=== PATIENT | female | born 1930 | race Caucasian/White ===

== ENCOUNTER 2020-03-28 09:25 | Inpatient (IN) | payer MEDICARE, OTHER ==
[2020-03-28 11:22] LABS: Lactic Acid 1.7 mmol/L (0.5-2.2)
[2020-03-28 11:28] LABS: ALT (SGPT) 24 U/L (8-55); AST (SGOT) 13 U/L (5-34); Albumin 3.9 g/dL (3.4-4.8); Alkaline Phosphatase 69 U/L (40-110); Anion Gap 19 mmol/L (10-20); BUN (Urea Nitrogen) 35 mg/dL (9.8-20.1); Bilirubin, Total 0.7 mg/dL (0.2-1.2); Calc. Creatinine Clearance 24 mL/min (70-130); Calcium 9.2 mg/dL (7.8-10.44); Carbon Dioxide 20 mmol/L (23-31); Chloride 103 mmol/L (98-107); Estimated GFR-MDRD 34; Globulin 4.1 g/dL (2.4-3.5); Glucose 93 mg/dL (83-110); Potassium 4.3 mmol/L (3.5-5.1); Sodium 138 mmol/L (136-145)
[2020-03-28 11:33] LABS: Hemoglobin 15.6 g/dL (12.0-16.0); Lymphocytes 17 % (21-51); MDiff Complete? YES; Mean Corpuscular Hemoglobin 29.3 pg (27.0-31.0); Mean Corpuscular Volume 91.7 fL (78.0-98.0); Mean Platelet Volume 8.3 fL (7.4-10.4); Monocytes 11 % (0-10); Neutrophil 72 % (42-75); Platelet Count 427 thou/uL (130-400); Platelet Morphology Comment Appears Increased; RBC Distribution Width 11.6 % (11.5-14.5); Red Blood Cell (RBC) Count 5.33 mill/uL (4.20-5.40); White Blood Cell (WBC) Count 9.6 thou/uL (4.8-10.8)
--- NOTE | 2020-03-28 12:09 | RAD ---
AP CHEST: Date: 03/28/2020 HISTORY: Shortness of breath. Positive COVID. COMPARISON: 02/21/2013. FINDINGS: There are chronic lung changes with interstitial prominence bilaterally. There are hazy infiltrates s een in the periphery of both lungs consistent with COVID pneumonia. No significant vascular congestio n. Heart size normal. IMPRESSION: Hazy bilateral peripheral infiltrates consistent with COVID pneumonia. This is superimposed on what a ppears to be chronic lung change. POS: AGW
[2020-03-28] MEDS ORDERED: FLU VACC QS2020-21(65YR UP)/PF 240 MCG/0.7 ML SYRINGE IM ONE (12:15)
[2020-03-28] MEDS ORDERED: Sodium Chloride 0.9% 1,000 ML IV SCH (12:30)
[2020-03-28] MEDS ORDERED: Ipratropium/Albuterol Sulfate 4 GM AER IH PRN (13:20)
[2020-03-28 15:11] LABS: Bilirubin Negative (Negative); Blood, Urine Trace (Negative); Glucose, Urine (Dipstick) Negative (Negative); Ketone, Urine Negative (Negative); Leukocyte Moderate (Negative); Nitrite Negative (Negative); Protein, Urine (Dipstick) 30 mg/dL (Neg-Trace); Urobilinogen 0.2 mg/dL (Less than 2); pH, Urine 5.5 (5.0-9.0)
[2020-03-28 15:29] LABS: Bacteria/HPF 4+ HPF (None Seen); Clarity Slightly Cloudy (Clear); WBC/HPF Greater Than 50 HPF (0-3)
[2020-03-28] MEDS ORDERED: Non-Formulary Item 1 EACH (Multivitamin [Multi-Vitamin Daily] 1 TABLET Tablet) PO SCH (21:00)
[2020-03-28] MEDS ORDERED: DEXAMETHASONE 6 MG PO SCH (21:00)
[2020-03-28] MEDS ORDERED: Multivit, Therapeutic 1 TAB PO SCH (21:00)
[2020-03-28] MEDS: Dextrose 5 %-0.45 % NaCl 1,000 ML IV SCH (21:09)
[2020-03-28] MEDS: Dexamethasone 4 MG TAB PO SCH (21:15)
[2020-03-28] MEDS: Ascorbic Acid 500 mg Chewable Tablet PO SCH (21:15)
[2020-03-28] MEDS: Multivit, Therapeutic 1 TAB PO SCH (21:15)
--- NOTE | 2020-03-29 01:40 | HP ---
ATTENDING/PCP: Myrtle Huggins MD REASON FOR ADMISSION: General weakness, dehydration. HISTORY OF THE PRESENT ILLNESS/HOSPITAL COURSE: Ms. Em is an 89-year-old female, a long-term resident of [facility], who was recently diagnosed with COVID-19 infection per routine screening test in the [facility] facility about a week ago. The patient was then asymptomatic and was isolated in the snf's COVID unit. On 03/19/2020, the snf staff reports that patient started having URI symptoms. The patient started having cough, nonproductive, with diminished appetite. She was then febrile free. She was started on Z-Sean for empiric antibiotic treatment and supplements including vitamin D, zinc, vitamin C. High-dose aspirin for DVT prophylaxis was likewise initiated. After 10 days of being isolated in the snf's COVID unit, the patient was subsequently transferred to her regular room wherein she was noticed to be generally weak. She continued to have diminished appetite. Over the last 48 hours, staff reports that patient only drinks little fluids, water, or juice enough to swallow her medications but would not eat. She was also reported to have mild O2 desaturation requiring O2 supplements per nasal cannula at 2 L, but over the past 24 hours, the patient has been tolerating room air without significant respiratory distress. Her CXR is consistent with COVID-19 pneumonia Due to persistent general weakness, the patient was sent and directly admitted to [facility] for clinical dehydration and supportive medical management. When admitted to the medical floor today,the patient's initial vital signs showed blood pressure 130/62, temperature 97.2,pulse 50, respirations 16; O2 sats 91% on room air. The patient was placed on 2 L oxygen per nasal cannula and oxygen saturation improved to 96%. When evaluated, the patient remains generally weak and is wanting to lie down and doesnot do anything. She was less interactive. She barely eats her lunch tray but then ate few spoonful some after so much prodding from the nursing staff. PAST MEDICAL HISTORY: 1. Alzheimer disease, late onset. 2. Essential hypertension. 3. Hypothyroidism. 4. Dyslipidemia. 5. History of delusional disorder. 6. Dementia with behavioral disturbances. 7. Insomnia. 8. History of mood swings. 9. History of elopement. 10. Anxiety, agitation. 11. Macular degeneration. PAST SURGICAL HISTORY: Unknown. FAMILY HISTORY: Noncontributory. SOCIAL HISTORY: The patient is . Denies tobacco, ETOH, or illicit drug use. She is a long-term resident of [facility]. Her son, Ananda Sanchez, is this patient's responsible constitution party, who is actively involved in patient's care. ALLERGIES: TO PENICILLIN. REVIEW OF SYSTEMS: Limited secondary to current cognitive status/confusion. Per staff, reports no persistent fever. Denies vomiting, diarrhea, rectal bleeding, abdominal pain, chest pain, shortness of breath, dysuria, seizure-like activity, tics, tremors, or headaches. PHYSICAL EXAMINATION: CURRENT VITAL SIGNS: Blood pressure 116/51, temp 97, pulse 54, respirations 18, O2 saturations 96% at 2 L per nasal cannula. Weight 126 pounds and 9 ounces. Height 5 feet 3 inches. GENERAL: The patient is awake, alert, knows her name only, generally weak looking, frail looking, elderly, comfortably resting in bed, not in acute distress. HEENT: Normocephalic, atraumatic. PERRL. Intact EOM. Nonicteric sclerae. Oral mucosa is dry. Lips dry. NECK: Supple. No LAD. CHEST: Normal excursion. Nonlabored breathing. LUNGS: Clear breath sounds with good air entry except for diminished bases. No rales. No crackles. No wheezing. No rhonchi. CARDIAC: Mildly bradycardic. Normal S1 and S2. ABDOMEN: Flat, soft. Normoactive bowel sounds. Nondistended. Nontender. No rebound, no guarding. Negative CVA tenderness bilaterally. EXTREMITIES: No edema. No cyanosis. Atrophied limbs. SKIN: Intact. Warm with poor skin turgor. PSYCH: Calm. Answer simple questions with very soft voice, but takes a while, and some queries are not answered at all. Nonfocal. Gait unsteady. LABORATORY STUDIES: WBC 9.6, hemoglobin 15.6, hematocrit 48.8, platelets 427. Sodium 138, potassium 4.3, BUN 35, creatinine 1.45, estimated GFR 34. Lactic acid 1.7, glucose 93. Liver function tests within normal limits. Urine leukocyte moderately high, urine rbc 4-6, wbc greater than 50, urine bacteria 4+. Pending cultures for urine and blood x2. Chest x-ray showed hazy bilateral peripheral infiltrates consistent with COVID pneumonia. This is superimposed on what appears to be chronic lung changes. Heart size is normal. No significant vascular congestion. ASSESSMENT AND PLAN: 1. Clinical dehydration. 2. COVID pneumonia. 3. General weakness, severe deconditioning. 4. UTI,complicated 5. Hypothyroidism. 6. Alzheimer disease, late onset. 7. History of hypertension. This is an elderly with chronic medical conditions, a long-term resident of a [facility] facility with confirmed COVID-19 virus infection diagnosed on 03/12/2020 with mild symptoms, now presented with acute postviral syndrome complicated with clinical dehydration secondary to poor oral intake and UTI in elderly. The patient is admitted for supportive medical management. We will continue IV hydration until patient's oral consumption stabilizes. We will also start IV Levaquin for empiric treatment of UTI that probably complicates current postviral syndrome. The patient was already treated with oral antibiotic with Zithromax in the sn[facility]. We will continue all current medications including supplements of vitamin D, vitamin C, zinc. We will hold her antihypertensive, dementia, and insomnia medicine. Dietary consult. Continue I's and O's monitoring. GI prophylaxis with PPI. DVT prophylaxis with aspirin 325 mg p.o. We will continue supportive medical management at this time Consider physical and occupational therapy evaluation if the patient's overall strength improves. Further recommendations depending on the hospital course. CODE STATUS: The patient is DNR and this was confirmed with son, Ananda Sanchez, on the phone Son is aware that with COVID pneumonia in an elderly with multiple chronic conditions has a poor prognosis. Job ID: [id number] [facility]
[2020-03-29] MEDS: Levothyroxine Sodium 25 MCG TAB PO SCH (05:43)
[2020-03-29] MEDS: Dextrose 5 %-0.45 % NaCl 1,000 ML IV SCH ×2 (07:38→16:22)
[2020-03-29] MEDS: Multivit, Therapeutic 1 TAB PO SCH ×2 (08:13→20:31)
[2020-03-29] MEDS: Ascorbic Acid 500 mg Chewable Tablet PO SCH ×2 (08:13→20:31)
[2020-03-29] MEDS: Potassium Chloride 10 MEQ TAB PO SCH (08:14)
[2020-03-29] MEDS: Aspirin 325 MG TAB PO SCH (08:14)
[2020-03-29] MEDS: Cholecalciferol 1,000 UNITS (25 MCG) TAB PO SCH (08:14)
[2020-03-29] MEDS: Zinc Sulfate 220 MG CAP PO SCH (08:14)
[2020-03-29] MEDS ORDERED: Cholecalciferol 1,000 UNITS (25 MCG) TAB PO SCH (09:00)
[2020-03-29] MEDS ORDERED: Zinc Sulfate 220 MG CAP PO SCH (09:00)
[2020-03-29] MEDS ORDERED: CHOLECALCIFEROL 250 MCG PO SCH (09:00)
[2020-03-29] MEDS: Sodium Chloride 0.45% 1,000 ML IV SCH (16:24)
[2020-03-29] MEDS: Nystatin 500,000 UNITS/5 ML UDCUP SSW SCH ×2 (16:25→20:43)
[2020-03-29] MEDS: Dexamethasone 4 MG TAB PO SCH (20:31)
[2020-03-30] MEDS: Dextrose 5 %-0.45 % NaCl 1,000 ML IV SCH (05:20)
[2020-03-30] MEDS: Levothyroxine Sodium 25 MCG TAB PO SCH (05:23)
[2020-03-30 05:48] LABS: Anion Gap 16 mmol/L (10-20); BUN (Urea Nitrogen) 21 mg/dL (9.8-20.1); Calc. Creatinine Clearance 34 mL/min (70-130); Calcium 8.4 mg/dL (7.8-10.44); Carbon Dioxide 19 mmol/L (23-31); Chloride 109 mmol/L (98-107); Estimated GFR-MDRD 46; Glucose 167 mg/dL (83-110); Potassium 4.6 mmol/L (3.5-5.1); Sodium 139 mmol/L (136-145)
[2020-03-30] MEDS: Sodium Chloride 0.45% 1,000 ML IV SCH ×2 (06:05→20:48)
[2020-03-30] MEDS: Zinc Sulfate 220 MG CAP PO SCH (08:33)
[2020-03-30] MEDS: Nystatin 500,000 UNITS/5 ML UDCUP SSW SCH ×4 (08:33→20:49)
[2020-03-30] MEDS: Ascorbic Acid 500 mg Chewable Tablet PO SCH ×2 (08:33→20:48)
[2020-03-30] MEDS: Multivit, Therapeutic 1 TAB PO SCH ×2 (08:33→20:49)
[2020-03-30] MEDS: Aspirin 325 MG TAB PO SCH (08:33)
[2020-03-30] MEDS: Cholecalciferol 1,000 UNITS (25 MCG) TAB PO SCH (08:34)
[2020-03-30] MEDS: Potassium Chloride 10 MEQ TAB PO SCH (08:34)
[2020-03-30] MEDS: Dexamethasone 4 MG TAB PO SCH (20:48)
[2020-03-30] MEDS ORDERED: Mirtazapine 15 MG TAB PO SCH (21:00)
[2020-03-31] MEDS: Levothyroxine Sodium 25 MCG TAB PO SCH (06:09)
[2020-03-31] MEDS: Cholecalciferol 1,000 UNITS (25 MCG) TAB PO SCH (09:36)
[2020-03-31] MEDS: Nystatin 500,000 UNITS/5 ML UDCUP SSW SCH ×4 (09:37→20:35)
[2020-03-31] MEDS: Potassium Chloride 10 MEQ TAB PO SCH (09:37)
[2020-03-31] MEDS: Ascorbic Acid 500 mg Chewable Tablet PO SCH ×2 (09:37→20:36)
[2020-03-31] MEDS: Multivit, Therapeutic 1 TAB PO SCH ×2 (09:37→20:36)
[2020-03-31] MEDS: Aspirin 325 MG TAB PO SCH (09:38)
[2020-03-31] MEDS: Zinc Sulfate 220 MG CAP PO SCH (09:38)
[2020-03-31 10:52] VITALS: BMI 23.1
[2020-03-31] MEDS: Sodium Chloride 0.45% 1,000 ML IV SCH (11:01)
[2020-03-31] MEDS ORDERED: Sodium Chloride 0.45% 1,000 ML IV SCH (18:45)
[2020-03-31] MEDS: Dexamethasone 4 MG TAB PO SCH (20:35)
[2020-03-31] MEDS ORDERED: Mirtazapine 15 MG TAB PO SCH (21:00)
[2020-04-01] MEDS: Levothyroxine Sodium 25 MCG TAB PO SCH (05:54)
[2020-04-01 06:15] LABS: Anion Gap 18 mmol/L (10-20); BUN (Urea Nitrogen) 22 mg/dL (9.8-20.1); Calc. Creatinine Clearance 31 mL/min (70-130); Calcium 8.5 mg/dL (7.8-10.44); Carbon Dioxide 19 mmol/L (23-31); Chloride 110 mmol/L (98-107); Estimated GFR-MDRD 43; Glucose 155 mg/dL (83-110); Potassium 4.5 mmol/L (3.5-5.1); Sodium 142 mmol/L (136-145)
[2020-04-01] MEDS: Aspirin 325 MG TAB PO SCH (08:50)
[2020-04-01] MEDS: Nystatin 500,000 UNITS/5 ML UDCUP SSW SCH (08:50)
[2020-04-01] MEDS: Ascorbic Acid 500 mg Chewable Tablet PO SCH (08:50)
[2020-04-01] MEDS: Multivit, Therapeutic 1 TAB PO SCH (08:51)
[2020-04-01] MEDS: Zinc Sulfate 220 MG CAP PO SCH (08:51)
[2020-04-01 08:58] VITALS: BP 104/69; TEMP 96.6
[2020-04-01] MEDS ORDERED: Cholecalciferol (Vitamin D3) 5,000 UNITS CAPSULE PO SCH (09:00)
[2020-04-01] MEDS: Potassium Chloride 10 MEQ TAB PO SCH (09:57)
== END 2020-04-01 11:14 | disposition swing bed (61) | DRG 689 ==
LOC: UNDOADMIN 09:45 → MADMS 09:45
PROVIDERS: ADMIT Family Medicine; ATTEND Family Medicine
DX: N39.0 Urinary tract infection, site not specified (principal); U07.1 COVID-19; J12.89 Other viral pneumonia; F02.81 Dementia in other diseases classified elsewhere, unspecified severity, with behavioral disturbance; G93.3 Postviral and related fatigue syndromes; Z66 Do not resuscitate; E86.0 Dehydration; G30.1 Alzheimer's disease with late onset; I10 Essential (primary) hypertension; E03.9 Hypothyroidism, unspecified; E78.5 Hyperlipidemia, unspecified; G47.00 Insomnia, unspecified; H35.30 Unspecified macular degeneration; R53.1 Weakness; R53.81 Other malaise; Z88.0 Allergy status to penicillin
CPT/HCPCS: 36415; 71045; 80048; 80053; 81001; 83605; 84443; 85025; 87040; 87086; J1956; J7042; J7050; J8540

== ENCOUNTER 2020-03-31 13:07 | Inpatient (IN) | payer MEDICARE, OTHER ==
[2020-04-01] MEDS ORDERED: FLU VACC QS2020-21(65YR UP)/PF 240 MCG/0.7 ML SYRINGE IM ONE (12:45)
[2020-04-01] MEDS: Nystatin 500,000 UNITS/5 ML UDCUP PO SCH ×3 (13:31→20:03)
[2020-04-01] MEDS: Ascorbic Acid 500 mg Chewable Tablet PO SCH (20:05)
[2020-04-01] MEDS: Multivit, Therapeutic 1 TAB PO SCH (20:05)
[2020-04-01] MEDS: Mirtazapine 15 MG TAB PO SCH (20:05)
[2020-04-02] MEDS: Levothyroxine Sodium 25 MCG TAB PO SCH (05:27)
[2020-04-02] MEDS ORDERED: Potassium Chloride 10 MEQ TAB PO SCH (09:00)
[2020-04-02] MEDS: Aspirin 325 MG TAB PO SCH (09:08)
[2020-04-02] MEDS: Ascorbic Acid 500 mg Chewable Tablet PO SCH ×2 (09:08→21:33)
[2020-04-02] MEDS: Cholecalciferol (Vitamin D3) 5,000 UNITS CAPSULE PO SCH (09:08)
[2020-04-02] MEDS: Nystatin 500,000 UNITS/5 ML UDCUP PO SCH ×4 (09:08→21:33)
[2020-04-02] MEDS: Multivit, Therapeutic 1 TAB PO SCH ×2 (09:08→21:32)
[2020-04-02] MEDS: Zinc Sulfate 220 MG CAP PO SCH (09:08)
[2020-04-02] MEDS ORDERED: Acetaminophen 325 MG TAB PO PRN (10:50)
[2020-04-02] MEDS ORDERED: Senokot S 8.6-50 MG TAB PO SCH (11:00)
[2020-04-02] MEDS: Senokot S 8.6-50 MG TAB PO SCH (21:32)
[2020-04-02] MEDS: Mirtazapine 15 MG TAB PO SCH (21:33)
[2020-04-03] MEDS: Levothyroxine Sodium 25 MCG TAB PO SCH (06:14)
[2020-04-03] MEDS: Senokot S 8.6-50 MG TAB PO SCH ×2 (08:34→20:30)
[2020-04-03] MEDS: Aspirin 325 MG TAB PO SCH (08:34)
[2020-04-03] MEDS: Multivit, Therapeutic 1 TAB PO SCH ×2 (08:34→20:30)
[2020-04-03] MEDS: Ascorbic Acid 500 mg Chewable Tablet PO SCH ×2 (08:34→20:30)
[2020-04-03] MEDS: Zinc Sulfate 220 MG CAP PO SCH (08:34)
[2020-04-03] MEDS: Cholecalciferol (Vitamin D3) 5,000 UNITS CAPSULE PO SCH (08:34)
[2020-04-03] MEDS: Nystatin 500,000 UNITS/5 ML UDCUP PO SCH ×4 (08:35→20:28)
[2020-04-03] MEDS: Mirtazapine 15 MG TAB PO SCH (20:28)
[2020-04-04] MEDS: Levothyroxine Sodium 25 MCG TAB PO SCH (05:41)
[2020-04-04] MEDS: Multivit, Therapeutic 1 TAB PO SCH ×2 (08:14→20:28)
[2020-04-04] MEDS: Zinc Sulfate 220 MG CAP PO SCH (08:14)
[2020-04-04] MEDS: Nystatin 500,000 UNITS/5 ML UDCUP PO SCH ×4 (08:14→20:28)
[2020-04-04] MEDS: Aspirin 325 MG TAB PO SCH (08:14)
[2020-04-04] MEDS: Ascorbic Acid 500 mg Chewable Tablet PO SCH ×2 (08:14→20:28)
[2020-04-04] MEDS: Senokot S 8.6-50 MG TAB PO SCH ×2 (08:14→20:28)
[2020-04-04] MEDS: Cholecalciferol (Vitamin D3) 5,000 UNITS CAPSULE PO SCH (08:14)
[2020-04-04] MEDS ORDERED: FLU VACC QS2020-21(65YR UP)/PF 240 MCG/0.7 ML SYRINGE IM ONE (17:15)
[2020-04-04] MEDS: Mirtazapine 15 MG TAB PO SCH (20:29)
[2020-04-05] MEDS: Levothyroxine Sodium 25 MCG TAB PO SCH (04:49)
[2020-04-05] MEDS: Senokot S 8.6-50 MG TAB PO SCH ×3 (08:56→21:07)
[2020-04-05] MEDS: Zinc Sulfate 220 MG CAP PO SCH (08:56)
[2020-04-05] MEDS: Nystatin 500,000 UNITS/5 ML UDCUP PO SCH ×5 (08:56→21:06)
[2020-04-05] MEDS: Cholecalciferol (Vitamin D3) 5,000 UNITS CAPSULE PO SCH (08:56)
[2020-04-05] MEDS: Aspirin 325 MG TAB PO SCH (08:56)
[2020-04-05] MEDS: Multivit, Therapeutic 1 TAB PO SCH ×3 (08:56→21:07)
[2020-04-05] MEDS: Ascorbic Acid 500 mg Chewable Tablet PO SCH ×3 (08:57→21:07)
[2020-04-05] MEDS: Potassium Chloride 10 MEQ TAB PO SCH (08:57)
[2020-04-05] MEDS: Mirtazapine 15 MG TAB PO SCH ×2 (21:00→21:06)
[2020-04-06] MEDS: Levothyroxine Sodium 25 MCG TAB PO SCH ×2 (05:47→07:59)
[2020-04-06] MEDS: Ascorbic Acid 500 mg Chewable Tablet PO SCH ×2 (07:55→21:06)
[2020-04-06] MEDS: Aspirin 325 MG TAB PO SCH (07:55)
[2020-04-06] MEDS: Zinc Sulfate 220 MG CAP PO SCH (07:55)
[2020-04-06] MEDS: Nystatin 500,000 UNITS/5 ML UDCUP PO SCH ×4 (07:56→21:06)
[2020-04-06] MEDS: Cholecalciferol (Vitamin D3) 5,000 UNITS CAPSULE PO SCH (07:56)
[2020-04-06] MEDS: Senokot S 8.6-50 MG TAB PO SCH ×2 (07:56→21:05)
[2020-04-06] MEDS: Potassium Chloride 10 MEQ TAB PO SCH (07:56)
[2020-04-06] MEDS: Multivit, Therapeutic 1 TAB PO SCH ×2 (07:56→21:05)
[2020-04-06] MEDS: Mirtazapine 15 MG TAB PO SCH (21:05)
[2020-04-06] MEDS: Betamethasone 0.1% Cream 15 GM TUBE TOP SCH (21:06)
[2020-04-07] MEDS: Levothyroxine Sodium 25 MCG TAB PO SCH (05:49)
[2020-04-07] MEDS: Cholecalciferol (Vitamin D3) 5,000 UNITS CAPSULE PO SCH (09:26)
[2020-04-07] MEDS: Ascorbic Acid 500 mg Chewable Tablet PO SCH ×2 (09:26→20:45)
[2020-04-07] MEDS: Zinc Sulfate 220 MG CAP PO SCH (09:26)
[2020-04-07] MEDS: Aspirin 325 MG TAB PO SCH (09:26)
[2020-04-07] MEDS: Senokot S 8.6-50 MG TAB PO SCH ×2 (09:27→20:45)
[2020-04-07] MEDS: Nystatin 500,000 UNITS/5 ML UDCUP PO SCH ×4 (09:27→20:46)
[2020-04-07] MEDS: Potassium Chloride 10 MEQ TAB PO SCH (09:27)
[2020-04-07] MEDS: Multivit, Therapeutic 1 TAB PO SCH ×2 (09:27→20:46)
[2020-04-07 11:23] VITALS: BMI 22.2
[2020-04-07] MEDS: Mirtazapine 15 MG TAB PO SCH (20:45)
[2020-04-07] MEDS: Betamethasone 0.1% Cream 15 GM TUBE TOP SCH (20:51)
[2020-04-08] MEDS: Levothyroxine Sodium 25 MCG TAB PO SCH (06:06)
[2020-04-08 06:25] LABS: Anion Gap 15 mmol/L (10-20); BUN (Urea Nitrogen) 11 mg/dL (9.8-20.1); Calc. Creatinine Clearance 36 mL/min (70-130); Calcium 8.3 mg/dL (7.8-10.44); Carbon Dioxide 23 mmol/L (23-31); Chloride 107 mmol/L (98-107); Estimated GFR-MDRD 55; Glucose 82 mg/dL (83-110); Potassium 3.7 mmol/L (3.5-5.1); Sodium 141 mmol/L (136-145)
[2020-04-08] MEDS: Potassium Chloride 10 MEQ TAB PO SCH (08:05)
[2020-04-08] MEDS: Ascorbic Acid 500 mg Chewable Tablet PO SCH (08:06)
[2020-04-08] MEDS: Cholecalciferol (Vitamin D3) 5,000 UNITS CAPSULE PO SCH (08:06)
[2020-04-08] MEDS: Multivit, Therapeutic 1 TAB PO SCH (08:06)
[2020-04-08] MEDS: Aspirin 325 MG TAB PO SCH (08:06)
[2020-04-08] MEDS: Nystatin 500,000 UNITS/5 ML UDCUP PO SCH ×2 (08:06→13:18)
[2020-04-08] MEDS: Senokot S 8.6-50 MG TAB PO SCH (08:06)
[2020-04-08] MEDS: Zinc Sulfate 220 MG CAP PO SCH (08:08)
[2020-04-08 09:43] VITALS: BP 102/57; TEMP 98.2
[2020-04-08] MEDS ORDERED: Nystatin Cream 15 GM TUBE TOP SCH ×2 (10:30→21:00)
[2020-04-09] MEDS ORDERED: Cholecalciferol 1,000 UNITS (25 MCG) TAB PO SCH (09:00)
== END 2020-04-08 15:05 | DRG 948 ==
LOC: UNDOADMIN 04-01 11:17 → MADMS 04-01 11:17
PROVIDERS: ADMIT Family Medicine; ATTEND Family Medicine
DX: R53.1 Weakness (principal); B37.0 Candidal stomatitis; F02.81 Dementia in other diseases classified elsewhere, unspecified severity, with behavioral disturbance; N39.0 Urinary tract infection, site not specified; E44.0 Moderate protein-calorie malnutrition; E86.0 Dehydration; R62.7 Adult failure to thrive; R53.81 Other malaise; Z66 Do not resuscitate; G30.1 Alzheimer's disease with late onset; I10 Essential (primary) hypertension; E78.5 Hyperlipidemia, unspecified; F22 Delusional disorders; E03.9 Hypothyroidism, unspecified; G47.00 Insomnia, unspecified; F41.9 Anxiety disorder, unspecified; H35.30 Unspecified macular degeneration; Z88.0 Allergy status to penicillin; Z68.22 Body mass index [BMI] 22.0-22.9, adult
CPT/HCPCS: 80048; 90471; 90662; 90732; G0008; G0009

== ENCOUNTER 2021-09-10 16:55 | Emergency (ER) | payer MEDICARE, OTHER ==
[2021-09-10] MEDS ORDERED: TETANUS, DIPHTHERIA TOX,ADULT (TDVAX) 0.5 ML VIAL IM ONE (17:49)
[2021-09-10] MEDS ORDERED: Boostrix 0.5 ML (Tdap) VIAL ONE (17:50)
[2021-09-10 17:52] LABS: Anion Gap 15 mmol/L (10-20); BUN (Urea Nitrogen) 20 mg/dL (9.8-20.1); Calc. Creatinine Clearance 0 mL/min (70-130); Calcium 9.3 mg/dL (7.8-10.44); Carbon Dioxide 24 mmol/L (23-31); Chloride 105 mmol/L (98-107); Glucose 89 mg/dL (83-110); Potassium 4.1 mmol/L (3.5-5.1); Sodium 140 mmol/L (136-145)
== END 2021-09-10 18:34 ==
LOC: MADERS 16:55
DX: S81.811A Laceration without foreign body, right lower leg, initial encounter (principal); Z23 Encounter for immunization
CPT/HCPCS: 80048; 90471; 90714; 90715

== ENCOUNTER 2021-09-11 15:09 | Outpatient (CLI) | payer MEDICARE, OTHER ==
[2021-09-11 16:20] LABS: Bilirubin Negative (Negative); Blood, Urine Negative (Negative); Glucose, Urine (Dipstick) Negative (Negative); Ketone, Urine Negative (Negative); Leukocyte Small (Negative); Nitrite Negative (Negative); Protein, Urine (Dipstick) Negative (Neg-Trace); Urobilinogen 0.2 mg/dL (Less than 2)
[2021-09-11 16:36] LABS: Bacteria/HPF 2+ HPF (None Seen); Clarity Hazy (Clear); RBC/HPF 0-3 HPF (0-3); Squamous Epithelial 0-3 HPF (0-3)
== END 2021-09-11 15:10 | disposition home or self-care (01) ==
LOC: MADLAB 15:09
PROVIDERS: ATTEND Family Medicine
DX: F22 Delusional disorders (principal); R32 Unspecified urinary incontinence
CPT/HCPCS: 81001